=== PATIENT | male | born 1965 | race African-American/Black ===

== ENCOUNTER 2022-08-02 00:24 | Emergency (ER) | payer MEDICAID ==
[~2022-08-02] VITALS: Ht 182.9 cm; Wt 100.0 kg
[2022-08-02 00:32] VITALS: BP 161/101
== END 2022-08-02 07:21 | disposition left against medical advice (07) ==
LOC: ER 00:24
DX: R45.851 Suicidal ideations (principal); F12.10 Cannabis abuse, uncomplicated; Z86.59 Personal history of other mental and behavioral disorders
CPT/HCPCS: 99283

== ENCOUNTER 2024-05-04 23:43 | Emergency (ER) | payer MEDICAID, OTHER ==
[~2024-05-04] VITALS: Ht 188 cm; Wt 91.0 kg
[2024-05-04 23:46] VITALS: O2SAT 97
[2024-05-05 00:27] LABS: BASOPHILS % 1.1 % (0.0-2.0); EOSINOPHILS % 0.2 % (0.0-5.0); HEMATOCRIT. 39.3 % (42.0-52.0); HEMOGLOBIN. 13.5 g/dL (14.0-18.0); LYMPHOCYTES % 22.2 % (20.0-50.0); MEAN CORPUSCULAR HEMOGLOBIN 30.9 pg (28.0-32.0); MEAN CORPUSCULAR HGB CONC 34.3 g/dL (31.0-37.0); MEAN CORPUSCULAR VOLUME 90.1 fL (80.0-94.0); MEAN PLATELET VOLUME 9.5 fl (7.4-10.4); MONOCYTES % 9.2 % (2.0-8.0); NEUTROPHILS % 67.3 % (40.0-76.0); PLATELET 176 x1000/uL (130-400); RED BLOOD CELL COUNT 4.36 mill/uL (4.7-6.1); RED CELL DISTRIBUTION WIDTH 13.7 % (11.6-14.6); WHITE BLOOD COUNT 5.4 x1000/uL (4.5-11.0)
[2024-05-05 00:30] LABS: CHLORIDE 104 mEq/L (98-107); POTASSIUM 3.9 mEq/L (3.5-5.1); SODIUM 141 mEq/L (136-145)
[2024-05-05 00:31] LABS: CALCIUM 8.9 mg/dL (8.7-10.4); CARBON DIOXIDE 27 mEq/L (21-32)
[2024-05-05 00:36] LABS: CREATININE 0.9 mg/dL (0.6-1.3); GLUCOSE 110 mg/dL (70-105); UREA NITROGEN BLOOD 6 mg/dL (9-23)
[2024-05-05 00:37] LABS: ETHANOL BLOOD < 10 mg/dL (<10)
[2024-05-05 01:46] LABS: CLARITY URINE CLEAR (CLEAR); COLOR URINE YELLOW (YELLOW); GLUCOSE URINE NEGATIVE (NEGATIVE); KETONES URINE NEGATIVE (NEGATIVE); LEUKOCYTE ESTERASE URINE NEGATIVE (NEGATIVE); NITRITE URINE NEGATIVE (NEGATIVE); OCCULT BLOOD URINE NEGATIVE (NEGATIVE); PROTEIN URINE 2+ (NEGATIVE); SPECIFIC GRAVITY URINE 1.019 (1.005-1.030)
[2024-05-05 01:53] LABS: *AMPHETAMINES SCREEN URINE PRESUMPTIVE POSITIVE (NEGATIVE); *BARBITURATES SCREEN URINE NEGATIVE (NEGATIVE); *BENZODIAZEPINES SCREEN URINE NEGATIVE (NEGATIVE); *COCAINE SCREEN URINE NEGATIVE (NEGATIVE); METHADONE URINE SCREEN NEGATIVE (NEGATIVE)
[2024-05-05 01:54] LABS: ECSTASY MDMA SCREEN URINE NEGATIVE (NEGATIVE); OPIATES URINE SCREEN NEGATIVE (NEGATIVE); PHENCYCLIDINE URINE SCREEN PRESUMTIVE POSITIVE (NEGATIVE)
[2024-05-05 02:49] LABS: RBC URINE 0-2 /hpf (0-2); SQUAMOUS EPITHELIAL CELL URINE FEW /lpf (RARE/1+); WBC URINE 0-2 /hpf (0-2)
[2024-05-05 03:09] LABS: BACTERIA URINE NONE SEEN
[2024-05-05] MEDS: LORAZEPAM 2MG/ML INJ IM ONE (20:12)
[2024-05-05] MEDS: HALOPERIDOL LACTATE 5MG/ML VIAL IM ONE (20:13)
[2024-05-05] MEDS: DIPHENHYDRAMINE 50MG/ML VIAL IM ONE (20:13)
[2024-05-05] MEDS ORDERED: CLONIDINE 0.2MG TABLET PO ONE (20:15)
[2024-05-05] MEDS: HALOPERIDOL 2MG TABLET PO ONE (20:15)
[2024-05-05] MEDS: HALOPERIDOL 5MG TABLET PO ONE (20:31)
[2024-05-05] MEDS: LORAZEPAM 1MG TABLET PO ONE (20:32)
[2024-05-05] MEDS: CLONIDINE 0.1MG TABLET PO NR ×2 (20:32→20:56)
[2024-05-05 23:58] VITALS: BP 123/75; PULSE 92; RESP 20; TEMP 99.9
== END 2024-05-06 00:10 ==
LOC: ER 23:43
DX: R45.851 Suicidal ideations (principal); F12.10 Cannabis abuse, uncomplicated; Z86.59 Personal history of other mental and behavioral disorders; Z20.822 Contact with and (suspected) exposure to COVID-19
CPT/HCPCS: 80305; 80048; 81003; 80320; 85025; 36415; 99285; 87426; J1630; G0480

== ENCOUNTER 2024-08-09 18:54 | Emergency (ER) | payer MEDICAID ==
[~2024-08-09] VITALS: Ht 180.3 cm; Wt 100.0 kg
[2024-08-09 18:56] VITALS: BP 170/82; PULSE 82; RESP 18; TEMP 98.6; O2SAT 100
[2024-08-09] MEDS ORDERED: RISPERIDONE 1MG TABLET PO ONE (19:15)
[2024-08-09] MEDS: MIRTAZAPINE 15MG TABLET PO NR (21:00)
[2024-08-09 21:28] LABS: BASOPHILS % 1.3 % (0.0-2.0); EOSINOPHILS % 1.2 % (0.0-5.0); HEMATOCRIT. 38.3 % (42.0-52.0); HEMOGLOBIN. 12.8 g/dL (14.0-18.0); LYMPHOCYTES % 25.6 % (20.0-50.0); MEAN CORPUSCULAR HEMOGLOBIN 30.1 pg (28.0-32.0); MEAN CORPUSCULAR HGB CONC 33.4 g/dL (31.0-37.0); MEAN CORPUSCULAR VOLUME 90.1 fL (80.0-94.0); MEAN PLATELET VOLUME 9.4 fl (7.4-10.4); MONOCYTES % 5.9 % (2.0-8.0); PLATELET 156 x1000/uL (130-400); RED BLOOD CELL COUNT 4.25 mill/uL (4.7-6.1); RED CELL DISTRIBUTION WIDTH 13.8 % (11.6-14.6); WHITE BLOOD COUNT 7.1 x1000/uL (4.5-11.0)
[2024-08-09 21:35] LABS: CHLORIDE 110 mEq/L (98-107); POTASSIUM 4.2 mEq/L (3.5-5.1); SODIUM 144 mEq/L (136-145)
[2024-08-09 21:36] LABS: CALCIUM 9.2 mg/dL (8.7-10.4); CARBON DIOXIDE 27 mEq/L (21-32)
[2024-08-09 21:41] LABS: GLUCOSE 101 mg/dL (70-105); UREA NITROGEN BLOOD 10 mg/dL (9-23)
[2024-08-09 21:43] LABS: ACETAMINOPHEN < 2 ug/mL (10-30); ETHANOL BLOOD < 10 mg/dL (<10)
[2024-08-09] MEDS: RISPERIDONE 1MG TABLET PO SCH (22:15)
== END 2024-08-10 10:59 | disposition left against medical advice (07) ==
LOC: ER 18:54
DX: R44.0 Auditory hallucinations (principal); R45.851 Suicidal ideations; F41.9 Anxiety disorder, unspecified; F31.9 Bipolar disorder, unspecified; F15.10 Other stimulant abuse, uncomplicated
CPT/HCPCS: 36415; 80048; 80307; 80320; 80329; 85025; 99283; 99284; G0480

== ENCOUNTER 2024-11-12 00:09 | Emergency (ER) | payer MEDICAID ==
[~2024-11-12] VITALS: Ht 182.9 cm; Wt 100.0 kg
[2024-11-12] MEDS: HALOPERIDOL LACTATE 5MG/ML VIAL IM STA (00:36)
[2024-11-12] MEDS: DIPHENHYDRAMINE 50MG/ML VIAL IM STA (00:36)
[2024-11-12] MEDS: LORAZEPAM 2MG/ML INJ IM ONE (00:36)
[2024-11-12] MEDS: DIPHENHYDRAMINE 50MG/ML VIAL IM NR (00:45)
[2024-11-12] MEDS: LORAZEPAM 2MG/ML INJ IM NR (00:45)
[2024-11-12] MEDS: HALOPERIDOL LACTATE 5MG/ML VIAL IM NR (00:45)
[2024-11-12 01:15] VITALS: O2SAT 98
[2024-11-12 01:16] LABS: BASOPHILS % 1.2 % (0.0-2.0); EOSINOPHILS % 1.9 % (0.0-5.0); HEMATOCRIT. 40.5 % (42.0-52.0); HEMOGLOBIN. 13.4 g/dL (14.0-18.0); LYMPHOCYTES % 36.5 % (20.0-50.0); MEAN CORPUSCULAR HEMOGLOBIN 30.6 pg (28.0-32.0); MEAN CORPUSCULAR HGB CONC 33.1 g/dL (31.0-37.0); MEAN CORPUSCULAR VOLUME 92.4 fL (80.0-94.0); MEAN PLATELET VOLUME 9.4 fl (7.4-10.4); MONOCYTES % 6.4 % (2.0-8.0); PLATELET 219 x1000/uL (130-400); RED BLOOD CELL COUNT 4.38 mill/uL (4.7-6.1); RED CELL DISTRIBUTION WIDTH 13.8 % (11.6-14.6); WHITE BLOOD COUNT 6.9 x1000/uL (4.5-11.0)
[2024-11-12 01:18] LABS: CHLORIDE 103 mEq/L (98-107); POTASSIUM 3.7 mEq/L (3.5-5.1); SODIUM 139 mEq/L (136-145)
[2024-11-12 01:19] LABS: CALCIUM 9.6 mg/dL (8.7-10.4); CARBON DIOXIDE 21 mEq/L (21-32)
[2024-11-12 01:24] LABS: CREATININE 1.2 mg/dL (0.6-1.3); GLUCOSE 183 mg/dL (70-105); UREA NITROGEN BLOOD 9 mg/dL (9-23)
[2024-11-12 01:26] LABS: ACETAMINOPHEN < 2 ug/mL (10-30); CLARITY URINE CLEAR (CLEAR); COLOR URINE YELLOW (YELLOW); GLUCOSE URINE NEGATIVE (NEGATIVE); KETONES URINE NEGATIVE (NEGATIVE); LEUKOCYTE ESTERASE URINE NEGATIVE (NEGATIVE); NITRITE URINE NEGATIVE (NEGATIVE); OCCULT BLOOD URINE NEGATIVE (NEGATIVE); PROTEIN URINE 2+ (NEGATIVE); SPECIFIC GRAVITY URINE 1.023 (1.005-1.030)
[2024-11-12 01:34] LABS: ETHANOL BLOOD < 10 mg/dL (<10)
[2024-11-12 01:46] LABS: *AMPHETAMINES SCREEN URINE PRESUMPTIVE POSITIVE (NEGATIVE); *BARBITURATES SCREEN URINE NEGATIVE (NEGATIVE); *BENZODIAZEPINES SCREEN URINE NEGATIVE (NEGATIVE); *COCAINE SCREEN URINE NEGATIVE (NEGATIVE); CANNABINOID URINE SCREEN NEGATIVE (NEGATIVE); METHADONE URINE SCREEN NEGATIVE (NEGATIVE); OPIATES URINE SCREEN NEGATIVE (NEGATIVE); PHENCYCLIDINE URINE SCREEN NEGATIVE (NEGATIVE)
[2024-11-12 01:47] LABS: ECSTASY MDMA SCREEN URINE CONF.TEST INDICATED (NEGATIVE)
[2024-11-12 05:44] LABS: RBC URINE 0-2 /hpf (0-2); SQUAMOUS EPITHELIAL CELL URINE FEW /lpf (RARE/1+); WBC URINE 0-2 /hpf (0-2)
[2024-11-12 05:45] LABS: BACTERIA URINE NONE SEEN
[2024-11-12 09:51] VITALS: BP 128/71; PULSE 74; RESP 16; TEMP 36.55848; O2SAT 98
== END 2024-11-12 10:09 | disposition home or self-care (01) ==
LOC: ER 00:09
DX: F29 Unspecified psychosis not due to a substance or known physiological condition (principal); F15.10 Other stimulant abuse, uncomplicated; Z20.822 Contact with and (suspected) exposure to COVID-19
CPT/HCPCS: 80305; 80048; 81003; 80307; 80329; 80320; 85025; 36415; 96372; 99291; 87426; J1200; J1630; J2060; Z7610 ×2; G0480

== ENCOUNTER 2024-11-19 20:50 | Emergency (ER) | payer MEDICAID ==
[~2024-11-19] VITALS: Ht 180.3 cm; Wt 114.0 kg
[2024-11-19 20:54] VITALS: O2SAT 96
[2024-11-19] MEDS: ONDANSETRON HCL 4MG TABLET PO ONE (22:15)
[2024-11-20 00:14] LABS: BASOPHILS % 1.4 % (0.0-2.0); EOSINOPHILS % 3.8 % (0.0-5.0); HEMATOCRIT. 40.1 % (42.0-52.0); HEMOGLOBIN. 13.1 g/dL (14.0-18.0); LYMPHOCYTES % 41.2 % (20.0-50.0); MEAN CORPUSCULAR HEMOGLOBIN 29.9 pg (28.0-32.0); MEAN CORPUSCULAR HGB CONC 32.8 g/dL (31.0-37.0); MEAN CORPUSCULAR VOLUME 91.2 fL (80.0-94.0); MEAN PLATELET VOLUME 9.2 fl (7.4-10.4); MONOCYTES % 8.2 % (2.0-8.0); NEUTROPHILS % 45.4 % (40.0-76.0); PLATELET 236 x1000/uL (130-400); RED CELL DISTRIBUTION WIDTH 13.6 % (11.6-14.6); WHITE BLOOD COUNT 5.6 x1000/uL (4.5-11.0)
[2024-11-20 00:21] LABS: CHLORIDE 107 mEq/L (98-107); POTASSIUM 4.4 mEq/L (3.5-5.1); SODIUM 142 mEq/L (136-145)
[2024-11-20 00:22] LABS: CARBON DIOXIDE 25 mEq/L (21-32)
[2024-11-20 00:23] LABS: CALCIUM 9.6 mg/dL (8.7-10.4)
[2024-11-20 00:27] LABS: GLUCOSE 106 mg/dL (70-105)
[2024-11-20 00:28] LABS: UREA NITROGEN BLOOD 11 mg/dL (9-23)
[2024-11-20 00:29] LABS: ALANINE AMINOTRANSFERASE 16 IU/L (10-49); ALBUMIN 4.5 g/dL (3.2-4.8); ASPARTATE AMINOTRANSFERASE 21 IU/L (<34)
[2024-11-20 00:30] LABS: BILIRUBIN DIRECT 0.2 mg/dL (<=3.0); BILIRUBIN TOTAL 0.5 mg/dL (0.1-1.0)
[2024-11-20 01:06] VITALS: BP 144/82; PULSE 99; RESP 16; TEMP 36.83628; O2SAT 97
== END 2024-11-20 01:07 | disposition home or self-care (01) ==
LOC: ER 20:50
DX: R10.9 Unspecified abdominal pain (principal)
CPT/HCPCS: 99284; 74176; 80076; 80048; 83690; 85025; 36415; Q0162

== ENCOUNTER 2024-12-30 02:28 | Emergency (ER) | payer MEDICAID ==
[~2024-12-30] VITALS: Ht 182.9 cm; Wt 95.0 kg
[2024-12-30 02:35] VITALS: O2SAT 96
[2024-12-30 03:38] LABS: BASOPHILS % 1.2 % (0.0-2.0); EOSINOPHILS % 1.8 % (0.0-5.0); HEMATOCRIT. 39.9 % (42.0-52.0); HEMOGLOBIN. 13.4 g/dL (14.0-18.0); LYMPHOCYTES % 25.5 % (20.0-50.0); MEAN CORPUSCULAR HEMOGLOBIN 30.4 pg (28.0-32.0); MEAN CORPUSCULAR HGB CONC 33.6 g/dL (31.0-37.0); MEAN CORPUSCULAR VOLUME 90.4 fL (80.0-94.0); MONOCYTES % 9.7 % (2.0-8.0); NEUTROPHILS % 61.8 % (40.0-76.0); PLATELET 183 x1000/uL (130-400); RED BLOOD CELL COUNT 4.41 mill/uL (4.7-6.1); RED CELL DISTRIBUTION WIDTH 14.1 % (11.6-14.6); WHITE BLOOD COUNT 5.3 x1000/uL (4.5-11.0)
[2024-12-30] MEDS: LORAZEPAM 2MG/ML INJ IM ONE (03:40)
[2024-12-30] MEDS: HALOPERIDOL LACTATE 5MG/ML VIAL IM ONE (03:40)
[2024-12-30] MEDS: DIPHENHYDRAMINE 50MG/ML VIAL IM ONE (03:40)
[2024-12-30 03:45] LABS: CHLORIDE 103 mEq/L (98-107); POTASSIUM 3.9 mEq/L (3.5-5.1); SODIUM 138 mEq/L (136-145)
[2024-12-30 03:46] LABS: CALCIUM 9.2 mg/dL (8.7-10.4); CARBON DIOXIDE 28 mEq/L (21-32)
[2024-12-30 03:51] LABS: GLUCOSE 116 mg/dL (70-105); UREA NITROGEN BLOOD 8 mg/dL (9-23)
[2024-12-30 03:53] LABS: ACETAMINOPHEN < 2 ug/mL (10-30)
[2024-12-30 04:18] LABS: ETHANOL BLOOD < 10 mg/dL (<10)
[2024-12-30 04:58] LABS: CLARITY URINE CLEAR (CLEAR); COLOR URINE YELLOW (YELLOW); GLUCOSE URINE NEGATIVE (NEGATIVE); KETONES URINE NEGATIVE (NEGATIVE); LEUKOCYTE ESTERASE URINE NEGATIVE (NEGATIVE); NITRITE URINE NEGATIVE (NEGATIVE); OCCULT BLOOD URINE NEGATIVE (NEGATIVE); PROTEIN URINE 1+ (NEGATIVE); SPECIFIC GRAVITY URINE 1.022 (1.005-1.030)
[2024-12-30 05:09] LABS: *AMPHETAMINES SCREEN URINE PRESUMPTIVE POSITIVE (NEGATIVE); *BARBITURATES SCREEN URINE NEGATIVE (NEGATIVE); *BENZODIAZEPINES SCREEN URINE NEGATIVE (NEGATIVE); *COCAINE SCREEN URINE NEGATIVE (NEGATIVE); CANNABINOID URINE SCREEN NEGATIVE (NEGATIVE); METHADONE URINE SCREEN NEGATIVE (NEGATIVE); OPIATES URINE SCREEN NEGATIVE (NEGATIVE); PHENCYCLIDINE URINE SCREEN PRESUMTIVE POSITIVE (NEGATIVE)
[2024-12-30 05:10] LABS: ECSTASY MDMA SCREEN URINE CONF.TEST INDICATED (NEGATIVE)
[2024-12-30 05:14] LABS: BACTERIA URINE NONE SEEN; RBC URINE 0-2 /hpf (0-2); SQUAMOUS EPITHELIAL CELL URINE 1+ /lpf (RARE/1+); WBC URINE 0-2 /hpf (0-2)
[2024-12-30 08:00] VITALS: BP 114/72; PULSE 84; RESP 16; TEMP 36.9; O2SAT 96
[2024-12-30] MEDS ORDERED: RISP2 PO (08:16)
== END 2024-12-30 09:16 | disposition home or self-care (01) ==
LOC: ER 02:28
DX: F20.9 Schizophrenia, unspecified (principal); F19.10 Other psychoactive substance abuse, uncomplicated; F10.90 Alcohol use, unspecified, uncomplicated; F14.90 Cocaine use, unspecified, uncomplicated; F12.90 Cannabis use, unspecified, uncomplicated; F15.90 Other stimulant use, unspecified, uncomplicated; Z79.899 Other long term (current) drug therapy; Z20.822 Contact with and (suspected) exposure to COVID-19; Y90.9 Presence of alcohol in blood, level not specified
CPT/HCPCS: 80305; 80048; 81003; 80307; 80329; 80320; 85025; 36415; 93005; 96372; 99284; 87426; J1200; J1630; J2060; G0480